=== PATIENT | male | born 1960 | race Caucasian/White ===

== ENCOUNTER 2016-09-28 05:52 | Emergency (ER) | payer MEDICAID ==
[2016-09-28 06:02] VITALS: RESP 16
--- NOTE | 2016-09-28 07:30 | ED ---
General Adult HPI - General Chief complaint: Eye Problems Stated complaint: eye pain Time Seen by Provider: 09/28/16 06:43 Source: patient, RN notes reviewed, old records reviewed Mode of arrival: ambulatory Limitations: no limitations - History of Present Illness Initial comments: This is a 35-year-old male here for evaluation of floaters. Patient does have history of Lasix surgery. Patient concerning detachment. Patient states that after he woke up today he noticed some flickering of his right eye some blurry vision was not seeing double, then patient noticed that he started to see folders. Patient has no loss of vision, is able to see out of both eyes. No drainage. No pain. - Related Data Home Medications Medication Instructions Recorded Confirmed Warfarin Sodium [Coumadin] 10 mg PO DAILY 09/28/16 09/28/16 Allergies Allergy/AdvReac Type Severity Reaction Status Date / Time No Known Allergies Allergy Verified 09/28/16 06:02 Review of Systems ROS Statement: Those systems with pertinent positive or pertinent negative responses have been documented in the HPI. ROS Other: All systems not noted in ROS Statement are negative. Past Medical History Past Medical History: Deep Vein Thrombosis (DVT) Additional Past Medical History / Comment(s): DVT 09/2015 left knee History of Any Multi-Drug Resistant Organisms: None Reported Past Surgical History: No Surgical Hx Reported Past Psychological History: No Psychological Hx Reported Smoking Status: Never smoker Past Alcohol Use History: Rare Past Drug Use History: None Reported General Exam Limitations: no limitations General appearance: alert, in no apparent distress Head exam: Present: atraumatic, normocephalic, normal inspection Eye exam: Present: normal appearance, PERRL, EOMI. Absent: scleral icterus, conjunctival injection, periorbital swelling ENT exam: Present: normal exam, mucous membranes moist Neck exam: Present: normal inspection. Absent: tenderness, meningismus, lymphadenopathy Respiratory exam: Present: normal lung sounds bilaterally. Absent: respiratory distress, wheezes, rales, rhonchi, stridor Cardiovascular Exam: Present: regular rate, normal rhythm, normal heart sounds. Absent: systolic murmur, diastolic murmur, rubs, gallop, clicks GI/Abdominal exam: Present: soft, normal bowel sounds. Absent: distended, tenderness, guarding, rebound, rigid Extremities exam: Present: normal inspection, full ROM, normal capillary refill. Absent: tenderness, pedal edema, joint swelling, calf tenderness Back exam: Present: normal inspection Neurological exam: Present: alert, oriented X3, CN II-XII intact Psychiatric exam: Present: normal affect, normal mood Skin exam: Present: warm, dry, intact, normal color. 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
[2016-09-28 07:50] VITALS: BP 122/65; PULSE 61; TEMP 97.6
== END 2016-09-28 07:49 | disposition home or self-care (01) ==
LOC: EC 05:52
DX: H43.811 Vitreous degeneration, right eye (principal); Z79.01 Long term (current) use of anticoagulants; Z86.73 Personal history of transient ischemic attack (TIA), and cerebral infarction without residual deficits
CPT/HCPCS: 99283

== ENCOUNTER 2019-03-02 05:09 | Emergency (ER) | payer MEDICAID ==
[2019-03-02 05:22] VITALS: BP 125/78; PULSE 56; RESP 18; TEMP 97.6
--- NOTE | 2019-03-02 05:31 | ED ---
Extremity Problem HPI - General Chief complaint: Extremity Problem,Nontraumatic Stated complaint: Foot Pain Source: patient Mode of arrival: wheelchair Limitations: no limitations - History of Present Illness Initial comments: Itz is a 58-year-old woman who presents the emergency department today for evaluation of right foot pain. Patient denies any specific injury but notes that over the past few days he's noticed worsening pain in his right foot. Pain seems to be in the arch. Patient reports that at times he can point out specific areas of tenderness but currently is not hurting. Patient reports he feels like his arch is falling or that his foot looks swollen. Patient denies other complaints, he expresses concern that he may have a hairline fracture despite her not being any known trauma. - Related Data Home Medications Medication Instructions Recorded Confirmed Warfarin Sodium [Coumadin] 10 mg PO DAILY 09/28/16 09/28/16 Allergies Allergy/AdvReac Type Severity Reaction Status Date / Time No Known Allergies Allergy Verified 09/28/16 06:02 Review of Systems ROS Statement: Those systems with pertinent positive or pertinent negative responses have been documented in the HPI. ROS Other: All systems not noted in ROS Statement are negative. Past Medical History Past Medical History: Deep Vein Thrombosis (DVT) Additional Past Medical History / Comment(s): DVT 09/2015 left knee History of Any Multi-Drug Resistant Organisms: None Reported Past Surgical History: No Surgical Hx Reported Past Psychological History: No Psychological Hx Reported Smoking Status: Never smoker Past Alcohol Use History: Rare Past Drug Use History: None Reported General Exam - General Exam Comments Initial Comments: Physical Exam GENERAL: Patient is well-developed and well-nourished. Patient is nontoxic and well-hydrated and is in no distress. HENT: Normocephalic, Atraumatic. EYES: PERRL, EOMI PULMONARY: Unlabored respirations. No audible rales rhonchi or wheezing was noted. CARDIOVASCULAR: RRR Warm and well perfused extremities Strong DP and PT pulses bilaterally ABDOMEN: Soft and nontender with normal bowel sounds. SKIN: Skin is clear with no lesions or rashes and otherwise unremarkable. Toenails are stained black : Deferred NEUROLOGIC: Patient is alert and oriented x3. Moving all extremities spontaneously MUSCULOSKELETAL: Normal extremities with adequate strength and full range of motion. No lower extremity swelling or edema. No calf tenderness. Physical exam does reveal a higher arch on the left foot than the right, right foot has no obvious injury, point tenderness or deformity PSYCHIATRIC: Normal psychiatric evaluation Limitations: no limitations Course Vital Signs 03/02/19 05:18 Temperature 97.6 F Pulse Rate 56 L Respiratory 18 Rate Blood Pressure 125/78 O2 Sat by Pulse 99 Oximetry Medical Decision Making - Medical Decision Making The patient was seen and evaluated, history was obtained from the patient X-ray was ordered and revealed no obvious injury Results were discussed with the patient, I did offer the patient a surgical walking shoe for support and recommended follow-up with podiatry. Patient declined the walking she hasn't states that he would prefer just to wear his shoes as they are comfortable. All questions pertaining care were answered return parameters were discussed patient was discharged home in stable condition. Disposition Clinical Impression: Right foot pain Disposition: HOME SELF-CARE Condition: Stable Instructions (If sedation given, give patient instructions): Metatarsalgia (DC) Is patient prescribed a controlled substance at d/c from ED?: No Referrals: Emmett Hudson MD [Primary Care Provider] - 1-2 days
--- NOTE | 2019-03-02 05:47 | XR ---
EXAM: XR Right Foot Complete, 3 or More Views CLINICAL HISTORY: Pain TECHNIQUE: Frontal, lateral and oblique views of the right foot. COMPARISON: No relevant prior studies available. FINDINGS: Bones/joints: Unremarkable. No acute fracture. No dislocation. Soft tissues: Unremarkable. No radiopaque foreign body. IMPRESSION: No acute findings
== END 2019-03-02 06:15 | disposition home or self-care (01) ==
LOC: EC 05:09
DX: M79.671 Pain in right foot (principal); M21.6X2 Other acquired deformities of left foot; Z79.01 Long term (current) use of anticoagulants; Z86.718 Personal history of other venous thrombosis and embolism; Z53.29 Procedure and treatment not carried out because of patient's decision for other reasons
CPT/HCPCS: 99283

== ENCOUNTER 2019-07-28 18:57 | Emergency (ER) | payer MEDICAID ==
--- NOTE | 2019-07-28 19:19 | ED ---
General Adult HPI - General Chief complaint: Extremity Problem,Nontraumatic Stated complaint: Right lower leg swelling Time Seen by Provider: 07/28/19 19:04 Source: patient, RN notes reviewed Mode of arrival: ambulatory Limitations: no limitations - History of Present Illness Initial comments: Patient is a pleasant 38-year-old male presenting to emergency department with concerns regarding right lower leg swelling. Onset of symptoms was yesterday. Patient questioned if there was some minimal problems prior to playing basketball. Patient did ask well and did strain his right calf. Patient did notice some swelling today. Patient states there is some discomfort however is mild. Patient does have history of previous blood clots. Patient has been off his Coumadin for the past month. Patient denies any chest pain or dyspnea. - Related Data Home Medications Medication Instructions Recorded Confirmed Warfarin Sodium [Coumadin] 10 mg PO DAILY 09/28/16 09/28/16 Previous Rx's Medication Instructions Recorded Apixaban [Eliquis Starter Pack 0 mg PO DIRECTED 30 Days #1 pack 07/28/19 (for VTE)] Allergies Allergy/AdvReac Type Severity Reaction Status Date / Time No Known Allergies Allergy Verified 07/28/19 19:02 Review of Systems ROS Statement: Those systems with pertinent positive or pertinent negative responses have been documented in the HPI. ROS Other: All systems not noted in ROS Statement are negative. Constitutional: Denies: fever Eyes: Denies: eye pain ENT: Denies: ear pain Respiratory: Denies: cough, dyspnea Cardiovascular: Denies: chest pain Endocrine: Denies: fatigue Gastrointestinal: Denies: abdominal pain Genitourinary: Denies: dysuria Musculoskeletal: Reports: as per HPI Skin: Denies: lesions Neurological: Denies: weakness Past Medical History Past Medical History: Deep Vein Thrombosis (DVT) Additional Past Medical History / Comment(s): DVT 09/2015 left knee History of Any Multi-Drug Resistant Organisms: None Reported Past Surgical History: No Surgical Hx Reported Past Psychological History: No Psychological Hx Reported Smoking Status: Never smoker Past Alcohol Use History: Rare Past Drug Use History: None Reported General Exam Limitations: no limitations General appearance: alert, in no apparent distress Head exam: Present: normocephalic Eye exam: Present: normal appearance Neck exam: Present: normal inspection Respiratory exam: Present: normal lung sounds bilaterally Cardiovascular Exam: Present: regular rate, normal rhythm Expanded Peripheral pulses: 2+: Posterior Tibialis (R), Posterior Tibialis (L), Dorsalis Pedis (R), Dorsalis Pedis (L) GI/Abdominal exam: Present: soft. Absent: tenderness Extremities exam: Present: other (There is minimal increased size right calf compared to left). Absent: calf tenderness Neurological exam: Present: alert Psychiatric exam: Present: normal affect, normal mood Skin exam: Present: normal color Course Vital Signs 07/28/19 19:00 Temperature 98.2 F Pulse Rate 65 Respiratory 16 Rate Blood Pressure 121/69 O2 Sat by Pulse 96 Oximetry Medical Decision Making - Medical Decision Making Patient reevaluated and updated. Patient given prescription with starter pack for free 30 day Eliquis. - Radiology Data Radiology results: report reviewed (Ultrasound right leg shows DVT mid femoral and proximal popliteal) Disposition Clinical Impression: Deep vein thrombosis (DVT) of lower extremity Disposition: HOME SELF-CARE Condition: Stable Instructions (If sedation given, give patient instructions): Deep Vein Thrombosis (ED) Additional Instructions: Please get prescription filled tomorrow for Eliquis. Please follow-up with primary care physician in the next day or 2 for recheck. Return for chest pain or difficulty breathing, increased leg swelling, worsening symptoms or other concerns. Prescriptions: Apixaban [Eliquis Starter Pack (for VTE)] 0 mg PO DIRECTED 30 Days #1 pack Is patient prescribed a controlled substance at d/c from ED?: No Referrals: Emmett Hudson MD [Primary Care Provider] - 1-2 days Time of Disposition: 20:29
--- NOTE | 2019-07-28 20:10 | US ---
EXAMINATION TYPE: US venous doppler duplex LE RT DATE OF EXAM: 07/28/2019 7:46 PM COMPARISON: NONE CLINICAL HISTORY: swelling. Right calf swelling/pain x 2 days. Patient has a history of DVT. Patient is not taking blood thinners. SIDE PERFORMED: Right TECHNIQUE: The lower extremity deep venous system is examined utilizing real time linear array sonog anastasia with graded compression, doppler sonography and color-flow sonography. VESSELS IMAGED: External Iliac Vein (EIV) Common Femoral Vein Deep Femoral Vein Greater Saphenous Vein * Femoral Vein Popliteal Vein Small Saphenous Vein * Proximal Calf Veins (* superficial vessels) Right Leg: There appears to be thrombus in the mid-distal femoral vein and proximal popliteal vein. Trickle flow is seen in these segments. Compression not performed in these segments. IMPRESSION: There is deep venous thrombosis in the distal femoral vein and the popliteal vein. Thrombus appears a cute.
[2019-07-28] MEDS ORDERED: APIXABAN 5 MG TAB PO STA (20:30)
[2019-07-28 20:45] VITALS: BP 126/78; PULSE 82; RESP 18; TEMP 98
== END 2019-07-28 20:41 | disposition home or self-care (01) ==
LOC: EC 18:57
DX: I82.411 Acute embolism and thrombosis of right femoral vein (principal); I82.431 Acute embolism and thrombosis of right popliteal vein; Z79.01 Long term (current) use of anticoagulants
CPT/HCPCS: 99283

== ENCOUNTER 2019-08-23 17:23 | Emergency (ER) | payer MEDICAID ==
[2019-08-23 17:32] VITALS: BP 124/81; PULSE 83; RESP 18; TEMP 97.3
--- NOTE | 2019-08-23 18:08 | ED ---
General Adult HPI - General Chief complaint: Extremity Problem,Nontraumatic Stated complaint: hx of dvt-right leg swelling Time Seen by Provider: 08/23/19 17:37 Source: patient, RN notes reviewed Mode of arrival: ambulatory Limitations: no limitations - History of Present Illness Initial comments: 58-year-old male with a past medical history of DVT in bilateral lower extremities presents to the emergency department for a chief complaint of right calf pain. Patient states that about 5 weeks ago he was playing basketball and felt a strain in his right calf. States that he was seen in the emergency department for that and acute thrombus was found. Patient states he was off of his Coumadin which she takes for DVT at that time because he was having a cold and at this axis. He was started on Eliquis in the emergency department and transitioned back to Coumadin. Right calf pain did improve since that time. However patient woke up today and had right calf pain. States that he is due to take a long drive in the next few days and is concerned about this pain. States he wants another ultrasound to see if he had a recurrent DVT. He denies chest pain or shortness of breath. Patient's previous 2 DVTs were provoked with long plane ride as well as a long drive. He denies known clotting disorder.Patient has no other complaints at this time including shortness of breath, chest pain, abdominal pain, nausea or vomiting, headache, or visual changes. - Related Data Home Medications Medication Instructions Recorded Confirmed Warfarin Sodium [Coumadin] 10 mg PO DAILY 09/28/16 09/28/16 Previous Rx's Medication Instructions Recorded Apixaban [Eliquis Starter Pack 0 mg PO DIRECTED 30 Days #1 pack 07/28/19 (for VTE)] Allergies Allergy/AdvReac Type Severity Reaction Status Date / Time No Known Allergies Allergy Verified 08/23/19 17:32 Review of Systems ROS Statement: Those systems with pertinent positive or pertinent negative responses have been documented in the HPI. ROS Other: All systems not noted in ROS Statement are negative. Past Medical History Past Medical History: Deep Vein Thrombosis (DVT) Additional Past Medical History / Comment(s): DVT 09/2015 left knee History of Any Multi-Drug Resistant Organisms: None Reported Past Surgical History: No Surgical Hx Reported Past Psychological History: No Psychological Hx Reported Smoking Status: Never smoker Past Alcohol Use History: Rare Past Drug Use History: None Reported General Exam Limitations: no limitations General appearance: alert, in no apparent distress Head exam: Present: atraumatic, normocephalic, normal inspection Eye exam: Present: normal appearance, PERRL, EOMI. Absent: scleral icterus, conjunctival injection, periorbital swelling ENT exam: Present: normal exam, mucous membranes moist Neck exam: Present: normal inspection. Absent: tenderness, meningismus, lymphadenopathy Respiratory exam: Present: normal lung sounds bilaterally. Absent: respiratory distress, wheezes, rales, rhonchi, stridor Cardiovascular Exam: Present: regular rate, normal rhythm, normal heart sounds. Absent: systolic murmur, diastolic murmur, rubs, gallop, clicks Extremities exam: Present: full ROM, normal capillary refill (cap refill < 2 seconds, dp pulse 2+ in RLE), other (sensation intact in the RLE). Absent: tenderness (No tenderness of the right calf or posterior right knee. Negative Homans sign.), pedal edema, joint swelling, calf tenderness (no tenderness, no erythema, no increased warmth) Course Vital Signs 08/23/19 17:29 Temperature 97.3 F L Pulse Rate 83 Respiratory 18 Rate Blood Pressure 124/81 O2 Sat by Pulse 98 Oximetry Medical Decision Making - Medical Decision Making INR is 1.1. There is a chronic DVT in the right femoral vein improved compared to previous After I went in to talk with patient about his subtherapeutic INR level he told me that he actually lied about taking Coumadin. States that he is still taking Eliquis and never transitioned back to Coumadin. States he told me this because he did not want me to be upset that he did not follow-up with his primary care provider as directed by previous ER visit. I discussed that at this point INR is not helpful. I discussed the patient should continue Eliquis until he sees his primary care provider. I stated he should follow up with them this week. He does agree. He will return here if he has any worsening symptoms. - Lab Data Lab Results 08/23/19 Range/Units 18:00 PT 11.2 (9.0-12.0) sec INR 1.1 (<1.2) Disposition Clinical Impression: Chronic deep vein thrombosis (DVT) Disposition: HOME SELF-CARE Condition: Good Instructions (If sedation given, give patient instructions): Deep Vein Thrombosis (ED), Deep Vein Thrombosis Prevention (ED) Additional Instructions: Please continue to take Eliquis. Follow-up with your primary care provider to transition to Coumadin. If you have any worsening symptoms return to the emergency department. Is patient prescribed a controlled substance at d/c from ED?: No Referrals: Emmett Hudson MD [Primary Care Provider] - 1-2 days Time of Disposition: 19:10
[2019-08-23 18:22] LABS: INR 1.1 (<1.2); Prothrombin Time 11.2 sec (9.0-12.0)
--- NOTE | 2019-08-23 18:42 | US ---
EXAMINATION TYPE: US venous doppler duplex LE RT DATE OF EXAM: 08/23/2019 6:31 PM COMPARISON: 07/28/2019 CLINICAL HISTORY: h/o dvt. SIDE PERFORMED: TECHNIQUE: The lower extremity deep venous system is examined utilizing real time linear array sonog anastasia with graded compression, doppler sonography and color-flow sonography. VESSELS IMAGED: External Iliac Vein (EIV) Common Femoral Vein Deep Femoral Vein Greater Saphenous Vein * Femoral Vein Popliteal Vein Small Saphenous Vein * Proximal Calf Veins (* superficial vessels) Right Leg: There is still some thrombus in the distal femoral vein, this is non-occluding and appear s to have improved from previous study. IMPRESSION: There is chronic deep venous thrombosis in the right femoral vein improved compared to la st exam.
== END 2019-08-23 19:18 | disposition home or self-care (01) ==
LOC: EC 17:23
DX: I82.511 Chronic embolism and thrombosis of right femoral vein (principal); Z79.01 Long term (current) use of anticoagulants
CPT/HCPCS: 36415; 85610; 99284